=== PATIENT | female | born 1965 | race Asian ===

== ENCOUNTER 2020-07-06 10:54 | Emergency (ER) | payer BC, OTHER ==
[~2020-07-06] VITALS: Ht 160 cm; Wt 68.0 kg
[2020-07-06] MEDS ORDERED: IBUPROFEN 400MG TABLET PO ONE (11:30)
[2020-07-06 13:14] VITALS: BP 142/91
== END 2020-07-06 13:16 | disposition home or self-care (01) ==
LOC: ER 11:40
DX: T22.10XA Burn of first degree of shoulder and upper limb, except wrist and hand, unspecified site, initial encounter (principal); S20.219A Contusion of unspecified front wall of thorax, initial encounter; V47.5XXA Car driver injured in collision with fixed or stationary object in traffic accident, initial encounter; Y93.89 Activity, other specified; Y92.410 Unspecified street and highway as the place of occurrence of the external cause
CPT/HCPCS: 71045; 99283